=== PATIENT | female | born 1985 | race African-American/Black ===

== ENCOUNTER 2018-04-14 16:01 | Observation (INO) ==
[2018-04-14 16:52] LABS: Apearance,Urine CLEAR (Clear); Bilirubin,Urine Negative (Negative); Blood, Urine Negative (Negative); Glucose,Urine (UA) >=500 mg/dL (Negative); Ketones,Urine Negative (Negative); Nitrite,Urine Negative (Negative); Protein,Urine Negative; RBC,Urine 1 /HPF (0-4); Squamous Epithelial Cell,Urine Occasional /HPF (0-10); Urine Color Straw (Yellow); Urine Specific Gravity 1.038 (1.001-1.035); WBC,Urine 1 /HPF (0-6)
[2018-04-14] MEDS ORDERED: INSULIN REGULAR 100 UNIT/ML IV STA (17:47)
[2018-04-14] MEDS ORDERED: SODIUM CHLORIDE 0.9% 1,000 ML IV STA (17:47)
[2018-04-14] MEDS ORDERED: ONDANSETRON 4 MG/2 ML VIAL IV STA (17:47)
[2018-04-14] MEDS ORDERED: INSULIN REGULAR 100 UNIT/ML ONE (18:17)
[2018-04-14 18:26] LABS: Basophils % 0.3 % (0.0-0.8); Eosinophils # 0.1 10*3/uL (0.0-0.87); Eosinophils % 0.7 % (0.00-10.9); Hematocrit 43.8 VOL% (35.7-47.0); Hemoglobin 14.5 GM/DL (12.0-16.0); Immature Granulocytes % 0.3 %; Immature Granulocytes Absolute 0.02 #; Lymphocytes # 3.1 10*3/uL (1.4-4.0); Lymphocytes % 39.8 % (21.3-54.2); Mean Corpuscular HGB Conc 33.1 GM/DL (32-36); Mean Corpuscular Hemoglobin 31 PG (27-34); Mean Platelet Volume 12.2 FL (9.6-12.0); Monocytes # 0.4 10*3/uL (0.11-0.8); Monocytes % 5.5 % (1.7-12.7); Neutrophils # 4.1 10*3/uL (1.4-7.4); Neutrophils % 53.4 % (38.7-73.9); Platelet Count 226 T/CUMM (130-400); Red Blood Count 4.71 MC/CUMM (3.8-5.5); Red Cell Distribution Width 12.8 % (9.3-17.3); White Blood Count 7.7 T/CUMM (4-12)
[2018-04-14 18:56] LABS: Alanine Aminotransferase 32 U/L (13-56); Albumin 3.5 G/DL (3.4-5.0); Alkaline Phosphatase 130 U/L (45-117); Aspartate Amino Transferase 16 U/L (0-37); Bilirubin,Total < 0.39 MG/DL (0.2-1.0); Blood Urea Nitrogen 8 MG/DL (7-18); Calcium 9.8 MG/DL (8.5-10.1); Glucose 476 MG/DL (74-106); Osmolality,Calculated 288.1 MOS/KG (273-304); Potassium 4.3 MMOL/L (3.5-5.1); Sodium 135 MMOL/L (136-145)
[2018-04-14 18:57] LABS: Amylase 19 U/L (25-115); Lactic Acid 2.6 MMOL/L (0.4-2.0)
[2018-04-14] MEDS ORDERED: ONDANSETRON 4 MG/2 ML VIAL ONE (19:04)
[2018-04-14] MEDS ORDERED: GLUCAGON 1 MG VIAL IM PRN (20:28)
[2018-04-14] MEDS ORDERED: ONDANSETRON 4 MG/2 ML VIAL IV PRN (20:28)
[2018-04-14] MEDS ORDERED: ACETAMINOPHEN 325 MG TABLET PO PRN (20:28)
[2018-04-14] MEDS ORDERED: DEXTROSE 50% 25 GM/50 ML VIAL IV PRN (20:28)
[2018-04-14] MEDS ORDERED: ALUMINUM/MAGNES/SIMETH MAX STR 30 ML UDCUP PO PRN (20:37)
[2018-04-14] MEDS ORDERED: ENOXAPARIN 40 MG/0.4 ML SYRINGE SUBCUT SCH (21:00)
[2018-04-14] MEDS ORDERED: MAGNESIUM SULF RIDER 4 GM in PREMIX 1 EACH IV PRN (21:39)
[2018-04-14] MEDS ORDERED: MAGNESIUM SULF RIDER 2 GM in PREMIX 1 EACH IV PRN (21:39)
[2018-04-14] MEDS ORDERED: FLUCONAZOLE 150 MG TABLET PO ONE (22:00)
[2018-04-14] MEDS: SODIUM CHLORIDE 0.9% 1,000 ML IV SCH (22:48)
[2018-04-14] MEDS: INSULIN REGULAR 100 UNIT/ML SUBCUT SCH (22:52)
[2018-04-15 05:32] LABS: Basophils % 0.2 % (0.0-0.8); Eosinophils % 0.5 % (0.00-10.9); Hemoglobin 12.9 GM/DL (12.0-16.0); Immature Granulocytes % 0.4 %; Immature Granulocytes Absolute 0.03 #; Lymphocytes # 4.3 10*3/uL (1.4-4.0); Lymphocytes % 50.5 % (21.3-54.2); Mean Corpuscular HGB Conc 33.9 GM/DL (32-36); Mean Corpuscular Hemoglobin 31 PG (27-34); Mean Corpuscular Volume 92.5 FL (87-102); Mean Platelet Volume 11.6 FL (9.6-12.0); Monocytes # 0.5 10*3/uL (0.11-0.8); Monocytes % 5.6 % (1.7-12.7); Neutrophils # 3.6 10*3/uL (1.4-7.4); Neutrophils % 42.8 % (38.7-73.9); Platelet Count 207 T/CUMM (130-400); Red Blood Count 4.11 MC/CUMM (3.8-5.5); Red Cell Distribution Width 12.8 % (9.3-17.3); White Blood Count 8.5 T/CUMM (4-12)
[2018-04-15 06:13] LABS: Calcium 8.5 MG/DL (8.5-10.1); Osmolality,Calculated 280.7 MOS/KG (273-304); Potassium 3.5 MMOL/L (3.5-5.1)
[2018-04-15 08:00] VITALS: BP 111/72
[2018-04-15] MEDS ORDERED: metFORMIN 500 MG TABLET PO SCH (08:00)
[2018-04-15] MEDS ORDERED: INSULIN GLARGINE 100 UNIT/ML SUBCUT SCH (09:00)
[2018-04-15] MEDS ORDERED: INFLUENZA VIRUS VACCINE 0.5 ML SYRINGE IM ONE (09:00)
[2018-04-15] MEDS: INSULIN REGULAR 100 UNIT/ML SUBCUT SCH (09:47)
[2018-04-15] MEDS: SODIUM CHLORIDE 0.9% 1,000 ML IV SCH (10:15)
== END 2018-04-15 10:17 | disposition home or self-care (01) ==
LOC: N.ED 16:01 → N.EDINP 16:01 → N.2E 21:33
PROVIDERS: ADMIT Internal Medicine; ATTEND Internal Medicine

== ENCOUNTER 2020-07-23 08:33 | Observation (INO) ==
[2020-07-23] MEDS ORDERED: SODIUM CHLORIDE 0.9% 1,000 ML IV STA ×2 (09:04→09:57)
[2020-07-23 09:33] LABS: Basophils % 0.1 % (0.0-0.8); Eosinophils # 0.1 10*3/uL (0.0-0.87); Eosinophils % 0.6 % (0.00-10.9); Hematocrit 40.5 VOL% (35.7-47.0); Hemoglobin 13.5 GM/DL (12.0-16.0); Immature Granulocytes % 0.4 %; Immature Granulocytes Absolute 0.03 #; Lymphocytes # 2.1 10*3/uL (1.4-4.0); Lymphocytes % 26.7 % (21.3-54.2); Mean Corpuscular HGB Conc 33.3 GM/DL (32-36); Mean Corpuscular Volume 94.2 FL (87-102); Mean Platelet Volume 11.2 FL (9.6-12.0); Monocytes % 5.8 % (1.7-12.7); Neutrophils % 66.4 % (38.7-73.9); Platelet Count 231 T/CUMM (130-400); Red Cell Distribution Width 12.4 % (9.3-17.3); White Blood Count 7.8 T/CUMM (4-12)
[2020-07-23 09:58] LABS: Alanine Aminotransferase 13 U/L (13-56); Albumin 3.1 G/DL (3.4-5.0); Alkaline Phosphatase 110 U/L (45-117); Blood Urea Nitrogen 6 MG/DL (7-18); Calcium 8.7 MG/DL (8.5-10.1); Carbon Dioxide 28 MMOL/L (21-32); Estimated Glom Filtration Rate 131 ML/MIN; Glucose 472 MG/DL (74-106); Osmolality,Calculated 291.8 MOS/KG (273-304); Potassium 4.2 MMOL/L (3.5-5.1); Sodium 137 MMOL/L (136-145); Total Protein 6.7 G/DL (6.4-8.2)
[2020-07-23 10:00] LABS: Bacteria,Urine Occasional /HPF (Few); Bilirubin,Urine Negative (Negative); Blood, Urine Small mg/dL (Negative); Glucose,Urine (UA) >=500 mg/dL (Negative); Ketones,Urine Negative (Negative); Mucus,Urine Occasional /LPF (Occasional); Nitrite,Urine Negative (Negative); Protein,Urine Negative; RBC,Urine 1 /HPF (0-4); Squamous Epithelial Cell,Urine Occasional /HPF (0-10); Urine Appearance CLEAR (Clear); Urine Color Straw (Yellow); Urine Specific Gravity 1.038 (1.001-1.035); Urine Urobilinogen < 2.0 EU/DL (0.2-1.0); WBC,Urine <1 /HPF (0-6)
[2020-07-23] MEDS ORDERED: INSULIN LISPRO 100 UNIT/ML SUBCUT STA (12:04)
[2020-07-23 12:13] LABS: Aspartate Amino Transferase 6 U/L (0-37)
[2020-07-23 12:21] LABS: Bilirubin,Total < 0.39 MG/DL (0.2-1.0)
[2020-07-23] MEDS ORDERED: AMPICILLIN/SULBACTAM 3,000 MG in SODIUM CHLORIDE 0.9% 100 ML IV STA (12:29)
[2020-07-23] MEDS ORDERED: KETOROLAC 30 MG/1 ML VIAL IV STA (13:25)
[2020-07-23] MEDS ORDERED: DEXTROSE 50% 25 GM/50 ML VIAL IV PRN (17:33)
[2020-07-23] MEDS ORDERED: GLUCAGON 1 MG VIAL IM PRN (17:33)
[2020-07-23] MEDS: metFORMIN 500 MG TABLET PO SCH (21:04)
[2020-07-23] MEDS: INSULIN GLARGINE 100 UNIT/ML SUBCUT SCH (21:05)
[2020-07-23] MEDS: INSULIN REGULAR 100 UNIT/ML SUBCUT SCH (21:05)
[2020-07-24] MEDS: INSULIN REGULAR 100 UNIT/ML SUBCUT SCH ×4 (07:42→20:29)
[2020-07-24] MEDS: metFORMIN 500 MG TABLET PO SCH ×2 (10:57→20:28)
[2020-07-24] MEDS: INSULIN GLARGINE 100 UNIT/ML SUBCUT SCH (20:28)
[2020-07-25] MEDS: INSULIN REGULAR 100 UNIT/ML SUBCUT SCH (07:50)
[2020-07-25 08:18] VITALS: BP 127/79
[2020-07-25] MEDS: metFORMIN 500 MG TABLET PO SCH (08:45)
[2020-07-25] MEDS ORDERED: NYSTATIN CREAM 15 GM TUBE TOP SCH (09:00)
== END 2020-07-25 10:32 | disposition home or self-care (01) ==
LOC: N.ED 08:33 → INTOOBSV 14:02 → N.EDINP 14:02 → N.3E 17:52
PROVIDERS: ADMIT Surgery; ATTEND Surgery

== ENCOUNTER 2020-09-03 09:25 | Inpatient (IN) ==
[2020-09-03] MEDS ORDERED: ONDANSETRON 4 MG/2 ML VIAL IV STA (09:43)
[2020-09-03] MEDS ORDERED: SODIUM CHLORIDE 0.9% 1,000 ML IV STA (09:43)
[2020-09-03] MEDS ORDERED: HYDROmorphone 2 MG/1 ML VIAL IV STA (09:54)
[2020-09-03 10:58] LABS: Basophils # 0.1 10*3/uL (0.0-0.2); Basophils % 0.3 % (0.0-0.8); Hematocrit 45.8 VOL% (35.7-47.0); Hemoglobin 14.3 GM/DL (12.0-16.0); Immature Granulocytes % 2.2 %; Immature Granulocytes Absolute 0.63 #; Lymphocytes # 0.8 10*3/uL (1.4-4.0); Lymphocytes % 2.6 % (21.3-54.2); Mean Corpuscular HGB Conc 31.2 GM/DL (32-36); Mean Corpuscular Volume 99.8 FL (87-102); Mean Platelet Volume 11.5 FL (9.6-12.0); Monocytes % 6.5 % (1.7-12.7); Neutrophils % 88.4 % (38.7-73.9); Platelet Count 302 T/CUMM (130-400); Red Blood Count 4.59 MC/CUMM (3.8-5.5); Red Cell Distribution Width 12.4 % (9.3-17.3); White Blood Count 29.2 T/CUMM (4-12)
[2020-09-03] MEDS ORDERED: INSULIN REGULAR 100 UNIT/ML IV STA (11:02)
[2020-09-03 11:17] LABS: Band Neutrophils 3 % (0-10); Lymphocytes 1 % (20-55); Platelet Estimate Adequate; Segmented Neutrophils 93 % (50-85); Total Cells Counted 100
[2020-09-03 11:19] LABS: Albumin 3.2 G/DL (3.4-5.0); Bilirubin,Total 0.5 MG/DL (0.2-1.0); Osmolality,Calculated 287.8 MOS/KG (273-304); Total Protein 8.8 G/DL (6.4-8.2)
[2020-09-03 11:25] LABS: Potassium 6.1 MMOL/L (3.5-5.1)
[2020-09-03 12:22] LABS: Bilirubin,Urine Negative (Negative); Blood, Urine Large mg/dL (Negative); Glucose,Urine (UA) >=500 mg/dL (Negative); Ketones,Urine 80 mg/dL (Negative); Mucus,Urine Occasional /LPF (Occasional); Nitrite,Urine Negative (Negative); Protein,Urine 100 MG/DL; RBC,Urine 1680 /HPF (0-4); Squamous Epithelial Cell,Urine Occasional /HPF (0-10); Urine Appearance Slightly Hazy (Clear); Urine Color Red (Yellow); Urine Urobilinogen < 2.0 EU/DL (0.2-1.0)
[2020-09-03] MEDS: SODIUM CHLORIDE 0.9% 1,000 ML IV SCH ×4 (12:50→17:55)
[2020-09-03 13:00] LABS: ABG Base Excess -25.2 MMOL/L (-2.5-2.5); ABG HCO3 7.7 MMOL/L (20-26); ABG Oxygen Saturation 97.7 % (95-100); ABG TCO2 4.1 MMOL/L (23-27)
[2020-09-03 13:03] LABS: ABG PCO2 14.6 MM HG (35-48); ABG PH 7.089 (7.35-7.45)
[2020-09-03] MEDS ORDERED: ALBUTEROL 2.5 MG/3 ML NEB RESP TX PRN (13:16)
[2020-09-03] MEDS ORDERED: MAGNESIUM SULF RIDER 2 GM/50 ML PREMIX IV PRN (13:18)
[2020-09-03] MEDS ORDERED: INSULIN REGULAR 100 UNIT/ML IV ONE (13:18)
[2020-09-03] MEDS ORDERED: SODIUM CHLORIDE 0.9% IV PRN (13:18)
[2020-09-03] MEDS ORDERED: SODIUM CHLORIDE 0.9% 1,000 ML IV ONE (13:18)
[2020-09-03] MEDS ORDERED: MAGNESIUM SULF RIDER 4 GM/100 ML PREMIX IV PRN (13:18)
[2020-09-03] MEDS ORDERED: SODIUM PHOSPHATE IV PRN (13:18)
[2020-09-03] MEDS ORDERED: DEXTROSE 50% 25 GM/50 ML VIAL IV PRN ×2 (13:18)
[2020-09-03] MEDS ORDERED: SODIUM BICARBONATE 50 MEQ/50 ML VIAL IV STA (13:21)
[2020-09-03] MEDS: PANTOPRAZOLE 40 MG VIAL IV SCH (13:58)
[2020-09-03 14:59] LABS: Calcium 9.3 MG/DL (8.5-10.1); Osmolality,Calculated 288.1 MOS/KG (273-304); Potassium 5.3 MMOL/L (3.5-5.1)
[2020-09-03] MEDS: INSULIN REGULAR DRIP 100 ML IV SCH (16:30)
[2020-09-03 17:41] LABS: Calcium 8.9 MG/DL (8.5-10.1); Osmolality,Calculated 288.4 MOS/KG (273-304); Potassium 4.9 MMOL/L (3.5-5.1)
[2020-09-03] MEDS ORDERED: SODIUM CHLORIDE 0.9% 1,000 ML IV SCH (18:30)
[2020-09-03] MEDS: SODIUM BICARBONATE 50 MEQ/50 ML VIAL IV SCH (20:45)
[2020-09-03 21:56] LABS: Calcium 8.7 MG/DL (8.5-10.1); Osmolality,Calculated 285.8 MOS/KG (273-304); Potassium 4.7 MMOL/L (3.5-5.1)
[2020-09-03] MEDS: ACETAMINOPHEN 500 MG TABLET PO PRN (22:18)
[2020-09-04] MEDS: SODIUM CHLOR 0.45% KCL 20 MEQ 20 MEQ/1,000 ML BAG IV SCH ×2 (01:17→05:30)
[2020-09-04 02:09] LABS: Calcium 8.7 MG/DL (8.5-10.1); Osmolality,Calculated 284.7 MOS/KG (273-304); Potassium 4.5 MMOL/L (3.5-5.1)
[2020-09-04 04:31] LABS: ABG HCO3 13.8 MMOL/L (20-26); ABG Oxygen Saturation 97.5 % (95-100); ABG PCO2 27.7 MM HG (35-48); ABG PH 7.314 (7.35-7.45); ABG PO2 100.1 MM HG (80-95); ABG TCO2 14.6 MMOL/L (23-27); Allen Test Positive; Pt O2 Delivery Device Room Air
[2020-09-04] MEDS: SODIUM BICARBONATE 50 MEQ/50 ML VIAL IV SCH (04:40)
[2020-09-04] MEDS ORDERED: SODIUM CHLORIDE 0.45% 1,000 ML IV SCH (06:30)
[2020-09-04 06:55] LABS: Basophils % 0.2 % (0.0-0.8); Eosinophils % 0.1 % (0.00-10.9); Hematocrit 34.4 VOL% (35.7-47.0); Immature Granulocytes % 0.8 %; Immature Granulocytes Absolute 0.11 #; Lymphocytes % 6.9 % (21.3-54.2); Mean Platelet Volume 11.1 FL (9.6-12.0); Monocytes % 8.7 % (1.7-12.7); Neutrophils % 83.3 % (38.7-73.9); Red Blood Count 3.74 MC/CUMM (3.8-5.5); Red Cell Distribution Width 12.7 % (9.3-17.3)
[2020-09-04 06:57] LABS: Hemoglobin 11.7 GM/DL (12.0-16.0); Platelet Count 205 T/CUMM (130-400)
[2020-09-04 07:22] LABS: Albumin 2.3 G/DL (3.4-5.0); Bilirubin,Total 1.1 MG/DL (0.2-1.0); Calcium 8.5 MG/DL (8.5-10.1); Osmolality,Calculated 278.7 MOS/KG (273-304); Potassium 4.2 MMOL/L (3.5-5.1); Thyroid Stimulating Hormone 0.377 uIU/ml (0.358-3.74); Total Protein 6.6 G/DL (6.4-8.2)
[2020-09-04] MEDS ORDERED: DEXT 5% NACL 0.45% KCL 20 MEQ 20 MEQ/1,000 ML BAG IV SCH (07:30)
[2020-09-04 09:10] LABS: Calcium 8.6 MG/DL (8.5-10.1); Osmolality,Calculated 277.8 MOS/KG (273-304); Potassium 3.9 MMOL/L (3.5-5.1)
[2020-09-04] MEDS: ACETAMINOPHEN 500 MG TABLET PO PRN (09:34)
[2020-09-04] MEDS: DEXTROSE 5% LACTATED RINGERS 1,000 ML IV SCH ×2 (10:15→17:18)
[2020-09-04] MEDS: POTASSIUM CHLORIDE RIDER 10 MEQ/100 ML PREMIX IV PRN ×2 (10:20→11:55)
[2020-09-04] MEDS: INSULIN REGULAR DRIP 100 ML IV SCH (13:53)
[2020-09-04] MEDS: PANTOPRAZOLE 40 MG VIAL IV SCH (14:15)
[2020-09-04] MEDS: LEVOFLOXACIN INJ 750 MG/150 ML PREMIX IV SCH (15:18)
[2020-09-04 16:52] LABS: Calcium 8.5 MG/DL (8.5-10.1); Osmolality,Calculated 267.1 MOS/KG (273-304); Potassium 4.9 MMOL/L (3.5-5.1)
[2020-09-04] MEDS ORDERED: NIFEdipine 10 MG CAPSULE PO PRN (17:19)
[2020-09-04] MEDS ORDERED: ONDANSETRON 4 MG/2 ML VIAL ONE (17:25)
[2020-09-04] MEDS: METOPROLOL TARTRATE 25 MG TABLET PO SCH ×2 (17:27→22:24)
[2020-09-04] MEDS: ONDANSETRON 4 MG/2 ML VIAL IV PRN ×2 (17:27→22:25)
[2020-09-04] MEDS: ACETAMINOPHEN 325 MG TABLET PO PRN (22:23)
[2020-09-04] MEDS: INSULIN GLARGINE 100 UNIT/ML SUBCUT SCH (22:24)
[2020-09-05] MEDS: DEXTROSE 5% LACTATED RINGERS 1,000 ML IV SCH ×3 (01:57→08:21)
[2020-09-05 05:10] LABS: Basophils % 0.1 % (0.0-0.8); Eosinophils % 0.5 % (0.00-10.9); Hematocrit 31.8 VOL% (35.7-47.0); Hemoglobin 11.3 GM/DL (12.0-16.0); Immature Granulocytes % 1.3 %; Immature Granulocytes Absolute 0.11 #; Lymphocytes # 1.6 10*3/uL (1.4-4.0); Mean Corpuscular HGB Conc 35.5 GM/DL (32-36); Mean Corpuscular Volume 87.4 FL (87-102); Mean Platelet Volume 11.2 FL (9.6-12.0); Monocytes % 10.8 % (1.7-12.7); Neutrophils % 69.3 % (38.7-73.9); Platelet Count 195 T/CUMM (130-400); Red Blood Count 3.64 MC/CUMM (3.8-5.5); Red Cell Distribution Width 12.4 % (9.3-17.3); White Blood Count 8.6 T/CUMM (4-12)
[2020-09-05 06:07] LABS: Calcium 8.7 MG/DL (8.5-10.1); Osmolality,Calculated 272.5 MOS/KG (273-304); Potassium 2.9 MMOL/L (3.5-5.1)
[2020-09-05] MEDS: ACETAMINOPHEN 325 MG TABLET PO PRN ×2 (06:28→16:13)
[2020-09-05] MEDS: INSULIN REGULAR DRIP 100 ML IV SCH (08:47)
[2020-09-05] MEDS: METOPROLOL TARTRATE 25 MG TABLET PO SCH ×2 (10:22→21:32)
[2020-09-05] MEDS: POTASSIUM CHLORIDE 20 MEQ/15 ML UDCUP PER TUBE PRN ×2 (10:22→12:37)
[2020-09-05] MEDS: PANTOPRAZOLE 40 MG TABLET PO SCH (10:22)
[2020-09-05] MEDS: INSULIN LISPRO 100 UNIT/ML SUBCUT SCH ×5 (12:36→21:33)
[2020-09-05] MEDS: LEVOFLOXACIN INJ 750 MG/150 ML PREMIX IV SCH (16:16)
[2020-09-05] MEDS: INSULIN GLARGINE 100 UNIT/ML SUBCUT SCH (21:33)
[2020-09-06] MEDS: INSULIN LISPRO 100 UNIT/ML SUBCUT SCH ×9 (00:21→22:08)
[2020-09-06 05:37] LABS: Calcium 8.6 MG/DL (8.5-10.1); Osmolality,Calculated 281.7 MOS/KG (273-304); Potassium 3.3 MMOL/L (3.5-5.1)
[2020-09-06] MEDS: PANTOPRAZOLE 40 MG TABLET PO SCH (08:56)
[2020-09-06] MEDS: METOPROLOL TARTRATE 25 MG TABLET PO SCH ×2 (08:56→22:08)
[2020-09-06] MEDS: LEVOFLOXACIN 750 MG TABLET PO SCH (08:56)
[2020-09-06] MEDS: POTASSIUM CHLORIDE 20 MEQ/15 ML UDCUP PER TUBE PRN ×3 (08:58→17:47)
[2020-09-06] MEDS ORDERED: INSULIN GLARGINE 100 UNIT/ML SUBCUT SCH ×2 (09:00→21:00)
[2020-09-06] MEDS ORDERED: MEROPENEM 500 MG in SODIUM CHLORIDE 0.9% 100 ML IV SCH (14:00)
[2020-09-07] MEDS: INSULIN LISPRO 100 UNIT/ML SUBCUT SCH ×9 (00:41→21:33)
[2020-09-07 07:30] LABS: Basophils % 0.2 % (0.0-0.8); Eosinophils % 0.3 % (0.00-10.9); Hematocrit 33.9 VOL% (35.7-47.0); Hemoglobin 11.6 GM/DL (12.0-16.0); Immature Granulocytes % 0.7 %; Immature Granulocytes Absolute 0.04 #; Lymphocytes # 1.8 10*3/uL (1.4-4.0); Lymphocytes % 29.9 % (21.3-54.2); Mean Corpuscular HGB Conc 34.2 GM/DL (32-36); Mean Corpuscular Volume 89.2 FL (87-102); Mean Platelet Volume 11.1 FL (9.6-12.0); Monocytes % 9.1 % (1.7-12.7); Neutrophils % 59.8 % (38.7-73.9); Platelet Count 234 T/CUMM (130-400); Red Cell Distribution Width 13.4 % (9.3-17.3)
[2020-09-07 07:56] LABS: Calcium 9.1 MG/DL (8.5-10.1); Osmolality,Calculated 283.4 MOS/KG (273-304); Potassium 3.5 MMOL/L (3.5-5.1)
[2020-09-07] MEDS: LEVOFLOXACIN 750 MG TABLET PO SCH (08:50)
[2020-09-07] MEDS: PANTOPRAZOLE 40 MG TABLET PO SCH (08:50)
[2020-09-07] MEDS: METOPROLOL TARTRATE 25 MG TABLET PO SCH ×2 (08:50→21:34)
[2020-09-07] MEDS ORDERED: LIDOCAINE 1% 20 ML VIAL IM ONE (09:50)
[2020-09-07] MEDS: cefTRIAXone 2,000 MG in SODIUM CHLORIDE 0.9% 100 ML IV SCH (10:02)
[2020-09-07] MEDS ORDERED: INSULIN GLARGINE 100 UNIT/ML SUBCUT SCH ×2 (21:00)
[2020-09-08] MEDS: INSULIN LISPRO 100 UNIT/ML SUBCUT SCH ×4 (01:12→08:36)
[2020-09-08 05:23] LABS: Basophils % 0.4 % (0.0-0.8); Eosinophils # 0.1 10*3/uL (0.0-0.87); Eosinophils % 1.1 % (0.00-10.9); Hematocrit 32.2 VOL% (35.7-47.0); Hemoglobin 11.1 GM/DL (12.0-16.0); Immature Granulocytes % 0.7 %; Immature Granulocytes Absolute 0.04 #; Lymphocytes # 1.8 10*3/uL (1.4-4.0); Lymphocytes % 32.6 % (21.3-54.2); Mean Corpuscular HGB Conc 34.5 GM/DL (32-36); Mean Corpuscular Volume 90.2 FL (87-102); Mean Platelet Volume 11.2 FL (9.6-12.0); Monocytes % 10.1 % (1.7-12.7); Neutrophils % 55.1 % (38.7-73.9); Platelet Count 248 T/CUMM (130-400); Red Blood Count 3.57 MC/CUMM (3.8-5.5); Red Cell Distribution Width 13.3 % (9.3-17.3); White Blood Count 5.4 T/CUMM (4-12)
[2020-09-08 05:40] LABS: Calcium 8.8 MG/DL (8.5-10.1); Osmolality,Calculated 283.3 MOS/KG (273-304); Potassium 3.5 MMOL/L (3.5-5.1)
[2020-09-08 07:30] VITALS: BP 130/94
[2020-09-08] MEDS: LEVOFLOXACIN 750 MG TABLET PO SCH ×2 (08:36→08:39)
[2020-09-08] MEDS: METOPROLOL TARTRATE 25 MG TABLET PO SCH ×2 (08:37→08:39)
[2020-09-08] MEDS: PANTOPRAZOLE 40 MG TABLET PO SCH ×2 (08:37→08:39)
[2020-09-08] MEDS: cefTRIAXone 2,000 MG in SODIUM CHLORIDE 0.9% 100 ML IV SCH (08:39)
[2020-09-13 09:16] LABS: GAD65 Ab Assay, S 0.09 nmol/L (<= 0.02)
== END 2020-09-08 09:02 | disposition home health service (06) | DRG 638 ==
LOC: EDBD → EDUNIT# → N.ED 09:25 → N.EDINP 12:02 → SUATTDRO 12:02 → N.ICU 15:01 → N.5E 09-05 14:13
PROVIDERS: ADMIT Internal Medicine; ATTEND Hospitalist

== ENCOUNTER 2022-02-22 12:37 | Inpatient (IN) ==
[2022-02-22] MEDS ORDERED: PANTOPRAZOLE 40 MG VIAL IV STA (14:31)
[2022-02-22] MEDS ORDERED: ONDANSETRON 4 MG/2 ML VIAL IV STA (14:31)
[2022-02-22] MEDS ORDERED: SODIUM CHLORIDE 0.9% 2,000 ML IV STA (14:31)
[2022-02-22 14:51] LABS: Albumin 2.9 G/DL (3.4-5.0); Bilirubin,Total 0.5 MG/DL (0.20-1.00); Calcium 9.8 MG/DL (8.5-10.1); Osmolality,Calculated 318.8 MOS/KG (273-304); Potassium 5.9 MMOL/L (3.5-5.1)
[2022-02-22 15:03] LABS: Bilirubin,Urine Small mg/dL (Negative); Blood, Urine Small mg/dL (Negative); Glucose,Urine (UA) 500 mg/dL (Negative); Ketones,Urine >=160 mg/dL (Negative); Nitrite,Urine Negative (Negative); Protein,Urine 30 mg/dL (Negative); Urine Appearance Clear (Clear); Urine Color Light Yellow (Yellow)
[2022-02-22 15:04] LABS: Basophils % 0.2 % (0.0-0.8); Eosinophils # 0.2 10*3/uL (0.0-0.87); Eosinophils % 1.2 % (0.00-10.9); Hematocrit 45.9 VOL% (35.7-47.0); Hemoglobin 13.9 GM/DL (12.0-16.0); Lymphocytes # 0.5 10*3/uL (1.4-4.0); Lymphocytes % 2.5 % (21.3-54.2); Mean Corpuscular HGB Conc 30.3 GM/DL (32-36); Mean Platelet Volume 12.9 FL (9.6-12.0); Monocytes # 1.4 10*3/uL (0.11-0.8); Monocytes % 6.9 % (1.7-12.7); Neutrophils % 87.2 % (38.7-73.9); Platelet Count 224 T/CUMM (130-400); Red Blood Count 4.29 MC/CUMM (3.8-5.5); Red Cell Distribution Width 13.2 % (9.3-17.3); Urine Urobilinogen 0.2 eU/dL (<2.0)
[2022-02-22 15:08] LABS: Bacteria,Urine Occasional /HPF (Few); Mucus,Urine Occasional /LPF (Occasional); RBC,Urine 5 /HPF (0-4); Squamous Epithelial Cell,Urine Occasional /HPF (0-10)
[2022-02-22] MEDS ORDERED: SODIUM BICARB INJ 100 MEQ in STERILE WATER INJ 400 ML IV PRN ×2 (15:10→15:54)
[2022-02-22] MEDS ORDERED: MAGNESIUM SULF RIDER 2 GM/50 ML PREMIX IV PRN (15:10)
[2022-02-22] MEDS ORDERED: SODIUM CHLORIDE 0.9% IV PRN ×2 (15:10→15:54)
[2022-02-22] MEDS ORDERED: SODIUM PHOSPHATE IV PRN ×2 (15:10→15:54)
[2022-02-22] MEDS ORDERED: INSULIN REGULAR 100 UNIT/ML IV ONE (15:10)
[2022-02-22] MEDS ORDERED: MAGNESIUM SULF RIDER 4 GM/100 ML PREMIX IV PRN (15:10)
[2022-02-22] MEDS ORDERED: DEXTROSE 10% 250 ML BAG IV PRN ×2 (15:16→15:17)
[2022-02-22 15:39] LABS: Arterial Base Excess iSTAT -19 MMOL/L (-2.5-2.5); Arterial O2 Saturation iSTAT 97 % (95-100); Arterial PCO2 iSTAT 19 MM HG (35-48); Arterial PO2 iSTAT 113 MM HG (80-95); Arterial Total CO2 iSTAT 8 MMO/L (23-27); Arterial pH iSTAT 7.173 (7.35-7.45)
[2022-02-22 15:39] LABS: Phosphorous 5.7 MG/DL (2.5-4.9)
[2022-02-22] MEDS ORDERED: ALBUTEROL 2.5 MG/3 ML NEB RESP TX PRN (15:51)
[2022-02-22] MEDS ORDERED: ONDANSETRON 4 MG/2 ML VIAL IV PRN (15:52)
[2022-02-22] MEDS ORDERED: POTASSIUM CHLORIDE RIDER 10 MEQ/100 ML PREMIX IV PRN (15:54)
[2022-02-22] MEDS ORDERED: DEXTROSE 50% 25 GM/50 ML VIAL IV PRN ×2 (15:54)
[2022-02-22] MEDS ORDERED: SODIUM CHLORIDE 0.9% 1,000 ML IV ONE ×3 (15:54→20:05)
[2022-02-22] MEDS ORDERED: INSULIN REGULAR DRIP 100 ML IV SCH (16:00)
[2022-02-22 16:12] LABS: Lymphocytes 1 % (20-55); Total Cells Counted 100
[2022-02-22 16:13] LABS: Platelet Estimate Normal
[2022-02-22 16:16] LABS: Macrocytosis Slight
[2022-02-22] MEDS: ENOXAPARIN 40 MG/0.4 ML SYRINGE SUBCUT SCH (16:35)
[2022-02-22] MEDS: FAMOTIDINE 20 MG/2 ML VIAL IV SCH (16:35)
[2022-02-22 16:54] VITALS: BP 130/88
[2022-02-22] MEDS ORDERED: SODIUM CHLORIDE 0.9% 1,000 ML IV SCH ×3 (17:00→21:00)
[2022-02-22] MEDS: INSULIN REGULAR DRIP 100 ML IV SCH (17:09)
[2022-02-22 17:42] LABS: Basophils % 0.1 % (0.0-0.8); Hematocrit 34.3 VOL% (35.7-47.0); Hemoglobin 11.3 GM/DL (12.0-16.0); Immature Granulocytes % 1.3 %; Immature Granulocytes Absolute 0.19 #; Lymphocytes # 1.1 10*3/uL (1.4-4.0); Lymphocytes % 7.3 % (21.3-54.2); Mean Corpuscular HGB Conc 32.9 GM/DL (32-36); Mean Corpuscular Volume 98.8 FL (87-102); Mean Platelet Volume 11.6 FL (9.6-12.0); Monocytes # 0.5 10*3/uL (0.11-0.8); Monocytes % 3.4 % (1.7-12.7); Neutrophils % 87.9 % (38.7-73.9); Platelet Count 191 T/CUMM (130-400); Red Blood Count 3.47 MC/CUMM (3.8-5.5); Red Cell Distribution Width 12.9 % (9.3-17.3); White Blood Count 14.9 T/CUMM (4-12)
[2022-02-22 17:59] LABS: Calcium 7.2 MG/DL (8.5-10.1); Osmolality,Calculated 311.8 MOS/KG (273-304); Potassium 3.9 MMOL/L (3.5-5.1)
[2022-02-22 18:31] LABS: Barbiturates Screen,Urine Negative (Negative); Benzodiazepines Screen,Urine Negative (Negative); Cannabinoid Screen,Urine Negative (Negative); Opiate Screen,Urine Negative (Negative); Phencyclidine Screen,Urine Negative (Negative)
[2022-02-22] MEDS: ONDANSETRON 4 MG/2 ML VIAL IV PRN (19:33)
[2022-02-22] MEDS ORDERED: ACETAMINOPHEN 500 MG TABLET PO ONE (20:10)
[2022-02-22 21:41] LABS: Calcium 6.6 MG/DL (8.5-10.1); Potassium 3.8 MMOL/L (3.5-5.1)
[2022-02-22] MEDS: SODIUM CHLOR 0.45% KCL 20 MEQ 20 MEQ/1,000 ML BAG IV SCH (23:15)
[2022-02-23] MEDS: ONDANSETRON 4 MG/2 ML VIAL IV PRN ×2 (00:18→08:07)
[2022-02-23 01:35] LABS: Osmolality,Calculated 300.7 MOS/KG (273-304); Potassium 5.1 MMOL/L (3.5-5.1)
[2022-02-23] MEDS: SODIUM CHLORIDE 0.9% 1,000 ML IV SCH ×6 (02:09→22:18)
[2022-02-23] MEDS: SODIUM CHLOR 0.45% KCL 20 MEQ 20 MEQ/1,000 ML BAG IV SCH ×4 (03:38→21:01)
[2022-02-23 04:59] LABS: Basophils % 0.2 % (0.0-0.8); Eosinophils # 0.4 10*3/uL (0.0-0.87); Eosinophils % 2.3 % (0.00-10.9); Hematocrit 44.2 VOL% (35.7-47.0); Immature Granulocytes % 1.7 %; Immature Granulocytes Absolute 0.29 #; Lymphocytes # 0.9 10*3/uL (1.4-4.0); Lymphocytes % 5.5 % (21.3-54.2); Mean Corpuscular HGB Conc 31.9 GM/DL (32-36); Mean Corpuscular Volume 101.1 FL (87-102); Mean Platelet Volume 11.9 FL (9.6-12.0); Monocytes % 6.2 % (1.7-12.7); Neutrophils % 84.1 % (38.7-73.9); Platelet Count 178 T/CUMM (130-400); Red Cell Distribution Width 13.2 % (9.3-17.3); White Blood Count 16.9 T/CUMM (4-12)
[2022-02-23 05:12] LABS: Osmolality,Calculated 293.1 MOS/KG (273-304); Potassium 5.4 MMOL/L (3.5-5.1)
[2022-02-23] MEDS: FAMOTIDINE 20 MG/2 ML VIAL IV SCH ×2 (05:12→16:41)
[2022-02-23 05:19] LABS: Red Blood Count 4.37 MC/CUMM (3.8-5.5)
[2022-02-23 05:20] LABS: Hemoglobin 14.1 GM/DL (12.0-16.0); Phosphorous 1.9 MG/DL (2.5-4.9)
[2022-02-23] MEDS: INSULIN REGULAR DRIP 100 ML IV SCH ×3 (07:13→21:47)
[2022-02-23 08:27] LABS: Calcium 9.5 MG/DL (8.5-10.1); Osmolality,Calculated 295.3 MOS/KG (273-304); Potassium 4.6 MMOL/L (3.5-5.1)
[2022-02-23] MEDS ORDERED: SODIUM CHLORIDE 0.45% 1,000 ML IV SCH (09:00)
[2022-02-23] MEDS ORDERED: SODIUM CHLORIDE 0.9% 1,000 ML IV ONE (09:31)
[2022-02-23] MEDS ORDERED: SODIUM CHLORIDE 0.9% 1,000 ML IV SCH (09:31)
[2022-02-23] MEDS ORDERED: SODIUM PHOSPHATE INJ 15 MMOL in SODIUM CHLORIDE 0.9% 250 ML IV ONE (10:00)
[2022-02-23] MEDS: METOPROLOL SUCCINATE XL 25 MG TABLET PO SCH (11:34)
[2022-02-23 11:48] LABS: Calcium 8.9 MG/DL (8.5-10.1); Osmolality,Calculated 293.1 MOS/KG (273-304); Potassium 4.7 MMOL/L (3.5-5.1)
[2022-02-23] MEDS: SODIUM CHLORIDE 0.45% 1,000 ML IV SCH ×2 (12:05→17:09)
[2022-02-23] MEDS: DEXT 5% NACL 0.45% KCL 20 MEQ 20 MEQ/1,000 ML BAG IV SCH ×2 (14:10→22:13)
[2022-02-23 15:40] LABS: Calcium 9.2 MG/DL (8.5-10.1); Osmolality,Calculated 289.8 MOS/KG (273-304); Potassium 4.3 MMOL/L (3.5-5.1)
[2022-02-23] MEDS: ENOXAPARIN 40 MG/0.4 ML SYRINGE SUBCUT SCH (16:41)
[2022-02-23 19:47] LABS: Calcium 9.3 MG/DL (8.5-10.1); Osmolality,Calculated 282.1 MOS/KG (273-304); Potassium 3.9 MMOL/L (3.5-5.1)
[2022-02-23] MEDS: METOPROLOL TARTRATE 5 MG/5 ML VIAL IV PRN (20:31)
[2022-02-23] MEDS ORDERED: METOPROLOL SUCCINATE XL 25 MG TABLET PO SCH (21:00)
[2022-02-24] MEDS: SODIUM CHLORIDE 0.45% 1,000 ML IV SCH ×2 (00:05→07:40)
[2022-02-24 00:21] LABS: Calcium 9.4 MG/DL (8.5-10.1); Potassium 3.9 MMOL/L (3.5-5.1)
[2022-02-24] MEDS: SODIUM CHLORIDE 0.9% 1,000 ML IV SCH ×4 (02:39→15:42)
[2022-02-24] MEDS: FAMOTIDINE 20 MG/2 ML VIAL IV SCH (04:23)
[2022-02-24] MEDS: SODIUM CHLOR 0.45% KCL 20 MEQ 20 MEQ/1,000 ML BAG IV SCH (04:23)
[2022-02-24 04:24] LABS: Basophils % 0.2 % (0.0-0.8); Hematocrit 33.4 VOL% (35.7-47.0); Hemoglobin 11.6 GM/DL (12.0-16.0); Immature Granulocytes % 0.8 %; Immature Granulocytes Absolute 0.09 #; Lymphocytes # 1.1 10*3/uL (1.4-4.0); Lymphocytes % 9.3 % (21.3-54.2); Mean Corpuscular HGB Conc 34.7 GM/DL (32-36); Mean Corpuscular Volume 94.6 FL (87-102); Mean Platelet Volume 11.3 FL (9.6-12.0); Monocytes # 1.1 10*3/uL (0.11-0.8); Neutrophils % 79.7 % (38.7-73.9); Platelet Count 170 T/CUMM (130-400); Red Blood Count 3.53 MC/CUMM (3.8-5.5); Red Cell Distribution Width 13.8 % (9.3-17.3); White Blood Count 11.5 T/CUMM (4-12)
[2022-02-24 04:45] LABS: Alanine Aminotransferase < 9 U/L (13-56); Albumin 2.1 G/DL (3.4-5.0); Alkaline Phosphatase 110 U/L (45-117); Aspartate Amino Transferase 6 U/L (0-37); Bilirubin,Total < 0.39 MG/DL (0.20-1.00); Blood Urea Nitrogen 6 MG/DL (7-18); Calcium 9.1 MG/DL (8.5-10.1); Carbon Dioxide 17 MMOL/L (21-32); Chloride 117 MMOL/L (98-107); Glucose 142 MG/DL (74-106); Potassium 3.3 MMOL/L (3.5-5.1); Sodium 143 MMOL/L (136-145); Total Protein 6.6 G/DL (6.4-8.2)
[2022-02-24] MEDS: DEXT 5% NACL 0.45% KCL 20 MEQ 20 MEQ/1,000 ML BAG IV SCH (05:35)
[2022-02-24] MEDS: METOPROLOL TARTRATE 5 MG/5 ML VIAL IV PRN ×2 (06:13→12:02)
[2022-02-24] MEDS: POTASSIUM CHLORIDE RIDER 10 MEQ/100 ML PREMIX IV PRN ×4 (06:13→17:57)
[2022-02-24] MEDS: METOPROLOL SUCCINATE XL 25 MG TABLET PO SCH (08:49)
[2022-02-24 09:21] LABS: Calcium 8.7 MG/DL (8.5-10.1); Osmolality,Calculated 282.1 MOS/KG (273-304); Potassium 3.7 MMOL/L (3.5-5.1)
[2022-02-24] MEDS ORDERED: POTASSIUM PHOSPHATE 30 MMOL in SODIUM CHLORIDE 0.9% 250 ML IV ONE (10:00)
[2022-02-24] MEDS ORDERED: GLUCAGON 1 MG VIAL IM PRN (10:35)
[2022-02-24] MEDS: cefTRIAXone 1,000 MG in SODIUM CHLORIDE 0.9% 100 ML IV SCH (10:43)
[2022-02-24] MEDS: INSULIN GLARGINE 100 UNIT/ML SUBCUT SCH (11:43)
[2022-02-24] MEDS: INSULIN LISPRO 100 UNIT/ML SUBCUT SCH ×3 (12:01→20:31)
[2022-02-24] MEDS: INSULIN REGULAR DRIP 100 ML IV SCH (15:42)
[2022-02-24] MEDS: ENOXAPARIN 40 MG/0.4 ML SYRINGE SUBCUT SCH (16:29)
[2022-02-24] MEDS ORDERED: PHENOL 1.4% THROAT SPRAY 177 ML BOTTLE PO PRN (16:49)
[2022-02-24 19:12] LABS: Calcium 8.5 MG/DL (8.5-10.1); Potassium 4.1 MMOL/L (3.5-5.1)
[2022-02-24] MEDS: METOPROLOL TARTRATE 25 MG TABLET PO SCH (20:31)
[2022-02-24] MEDS: ONDANSETRON 4 MG/2 ML VIAL IV PRN (21:09)
[2022-02-25] MEDS: INSULIN LISPRO 100 UNIT/ML SUBCUT SCH ×7 (01:34→23:19)
[2022-02-25 03:17] LABS: Basophils % 0.1 % (0.0-0.8); Eosinophils % 0.2 % (0.00-10.9); Hematocrit 29.6 VOL% (35.7-47.0); Hemoglobin 10.4 GM/DL (12.0-16.0); Immature Granulocytes % 0.9 %; Immature Granulocytes Absolute 0.08 #; Lymphocytes # 1.9 10*3/uL (1.4-4.0); Lymphocytes % 19.9 % (21.3-54.2); Mean Corpuscular HGB Conc 35.1 GM/DL (32-36); Mean Corpuscular Volume 91.9 FL (87-102); Mean Platelet Volume 11.3 FL (9.6-12.0); Monocytes % 10.2 % (1.7-12.7); Neutrophils % 68.7 % (38.7-73.9); Platelet Count 160 T/CUMM (130-400); Red Blood Count 3.22 MC/CUMM (3.8-5.5); Red Cell Distribution Width 13.9 % (9.3-17.3); White Blood Count 9.4 T/CUMM (4-12)
[2022-02-25 03:32] LABS: Calcium 8.7 MG/DL (8.5-10.1); Osmolality,Calculated 286.4 MOS/KG (273-304); Potassium 3.4 MMOL/L (3.5-5.1); Risk Ratio 11.42; VLDL Cholesterol 43.8 MG/DL
[2022-02-25] MEDS: POTASSIUM CHLORIDE RIDER 10 MEQ/100 ML PREMIX IV PRN ×3 (04:23→06:35)
[2022-02-25] MEDS: METOPROLOL TARTRATE 25 MG TABLET PO SCH ×2 (09:09→20:17)
[2022-02-25] MEDS: PANTOPRAZOLE 40 MG TABLET PO SCH (09:09)
[2022-02-25] MEDS: INSULIN GLARGINE 100 UNIT/ML SUBCUT SCH (09:09)
[2022-02-25] MEDS: cefTRIAXone 1,000 MG in SODIUM CHLORIDE 0.9% 100 ML IV SCH (09:10)
[2022-02-25] MEDS: METOCLOPRAMIDE 10 MG/2 ML VIAL IV SCH ×2 (12:34→20:17)
[2022-02-25] MEDS ORDERED: POTASSIUM PHOSPHATE 30 MMOL in SODIUM CHLORIDE 0.9% 250 ML IV ONE (13:00)
[2022-02-25] MEDS: ENOXAPARIN 40 MG/0.4 ML SYRINGE SUBCUT SCH (17:18)
[2022-02-26 04:24] LABS: Basophils % 0.2 % (0.0-0.8); Eosinophils % 0.3 % (0.00-10.9); Hematocrit 32.2 VOL% (35.7-47.0); Hemoglobin 11.2 GM/DL (12.0-16.0); Immature Granulocytes % 1.4 %; Immature Granulocytes Absolute 0.12 #; Lymphocytes # 1.9 10*3/uL (1.4-4.0); Lymphocytes % 21.6 % (21.3-54.2); Mean Corpuscular HGB Conc 34.8 GM/DL (32-36); Mean Corpuscular Volume 92.5 FL (87-102); Mean Platelet Volume 11.6 FL (9.6-12.0); Monocytes # 0.6 10*3/uL (0.11-0.8); Monocytes % 6.9 % (1.7-12.7); Neutrophils % 69.6 % (38.7-73.9); Platelet Count 161 T/CUMM (130-400); Red Blood Count 3.48 MC/CUMM (3.8-5.5); Red Cell Distribution Width 14.1 % (9.3-17.3); White Blood Count 8.6 T/CUMM (4-12)
[2022-02-26] MEDS: METOCLOPRAMIDE 10 MG/2 ML VIAL IV SCH ×2 (04:24→12:10)
[2022-02-26] MEDS: INSULIN LISPRO 100 UNIT/ML SUBCUT SCH ×3 (04:24→11:59)
[2022-02-26 04:38] LABS: Calcium 8.6 MG/DL (8.5-10.1); Osmolality,Calculated 281.7 MOS/KG (273-304); Potassium 3.6 MMOL/L (3.5-5.1)
[2022-02-26] MEDS: METOPROLOL TARTRATE 25 MG TABLET PO SCH (08:13)
[2022-02-26] MEDS: PANTOPRAZOLE 40 MG TABLET PO SCH (08:13)
[2022-02-26] MEDS ORDERED: POTASSIUM PHOSPHATE 30 MMOL in SODIUM CHLORIDE 0.9% 250 ML IV ONE (08:30)
[2022-02-26] MEDS: INSULIN GLARGINE 100 UNIT/ML SUBCUT SCH (08:53)
[2022-02-26] MEDS: cefTRIAXone 1,000 MG in SODIUM CHLORIDE 0.9% 100 ML IV SCH (09:10)
== END 2022-02-26 14:45 | disposition home or self-care (01) | DRG 637 ==
LOC: N.ED 12:37 → SUATTDRO 15:51 → N.EDINP 15:51 → N.CC 16:36
PROVIDERS: ADMIT Internal Medicine; ATTEND Internal Medicine